=== PATIENT | male | born 1940 | race Caucasian/White ===

== ENCOUNTER 2025-04-02 20:21 | Emergency (ER) | payer MEDICARE, SELFPAY ==
[2025-04-02 20:26] VITALS: BP 139/97
[2025-04-02 20:44] LABS: Hematocrit 37.7 % (39.0-52.0); Hemoglobin 13.3 g/dL (13.0-18.0); Mean Corp Hgb Conc. 35.3 g/dL (33.0-37.0); Mean Corpuscular Volume 88.5 fL (80.0-94.0); Nucleated Red Blood Cells % 0 % (-); Platelet Count 247 10^3/uL (130-400); Red Cell Dist. Width 12.9 % (11.5-14.5)
[2025-04-02 20:58] LABS: ALT (SGPT) 22 U/L (0-50); AST (SGOT) 27 U/L (17-59); Albumin 4.6 g/dl (3.5-5.0); Alkaline Phosphatase 93 U/L (38-126); Blood Urea Nitrogen 19 mg/dl (9-20); Calcium 9.0 mg/dl (8.4-10.2); Carbon Dioxide 19 mmol/L (22-30); Chloride 102 mmol/L (98-107); Glucose 106 mg/dl (70-99); Potassium 3.6 mmol/L (3.5-5.1); Sodium 131 mmol/L (135-145); Total Protein 7.6 g/dl (6.3-8.2); eGFR > 60.00
== END 2025-04-02 23:06 ==
LOC: EMR 20:21
PROVIDERS: Student in an Organized Health Care Education/Training Program
DX: R06.02 Shortness of breath (principal); Z53.21 Procedure and treatment not carried out due to patient leaving prior to being seen by health care provider
CPT/HCPCS: 80053; 85025

== ENCOUNTER 2025-04-05 12:19 | Emergency (ER) | payer MEDICARE, SELFPAY ==
[2025-04-05 12:25] VITALS: BP 171/82
--- NOTE | 2025-04-05 15:41 | ED.GENMED ---
History of Present Illness
General
Chief Complaint: Generalized Pain
Source: patient
Exam Limitations: none
Time Seen by Provider: 04/05/25 15:31
History of Present Illness
History of Present Illness:
85-year-old male presents for reevaluation. He was here 2 days ago and waited in the waiting room and decided to leave. He said someone told him he was anemic when he presented here for further evaluation. He states he is much better now than
what he did 2 days ago. He has no complaints of pain. His his fatigue is much better. No vomiting. His appetite is good. No chest pain. No shortness of breath.
Phy Exam
Physical Exam
Physical Exam:
General: Well-appearing male no acute respiratory distress
Neurologic exam: Alert conversing appropriately normal gait
Extremities: No cyanosis
Skin: Warm, no rash
Course
Vital Signs
Initial and Last Documented VS:
Initial Vital Signs
Temp Pulse Resp BP Pulse Ox
97.5 F 66 16 171/82 99
04/05/25 12:25 04/05/25 12:25 04/05/25 12:04/05/25 12:25 04/05/25 12:25
Last Documented Vital Signs
Temp Pulse Resp BP Pulse Ox
97.5 F 66 16 171/82 99
04/05/25 12:25 04/05/25 12:25 04/05/25 12:25 04/05/25 12:25 04/05/25 12:25
MDM/Problems Addressed
Differential Diagnosis Includes:
Patient here with fatigue but feels much better. He thought he was told he was anemic 2 days ago. Review of the blood work from 2 days ago demonstrated a normal hemoglobin. Other labs from Saturday are without significant findings. Offered more
workup for fatigue including thyroid studies a Lyme test however patient declined. He wishes to leave. He has appoint with his family doctor in April.
*Pulse Oximetry
SaO2: 99
Oxygen Mode of Delivery: Room air
Patient hypoxic: no
*Critical Care Note
Total Time (30-74mins, 75-104mins- exclusive of procedures): Not Applicable
ED Attending Note
-
Portions of this chart may have been created with voice recognition software.� Occasional wrong word or��sound alike� substitutions may have occurred due to the inherent limitations of voice recognition software.
Discharge Plan
Departure
Patient Disposition: Home (Routine Discharge)
Date of Disposition: 04/05/25
Time of Disposition: 15:43
Patient with high blood pressure during this ER visit?: No
Discharge Problem:
Fatigue
Activity Restrictions/Additional Instructions:
As discussed you are not anemic. Labs look good from 2 days ago. Please return here if needed
Interventions
Interventions:
*Risk Screen - Suicide Last Done: 04/05/25 12:25
*General Assessment Last Done: 04/05/25 12:25
*Neglect/Abuse Screening Last Done: 04/05/25 12:25
Discharge Date and Time
Print Language: PASHTO
[2025-04-05 15:47] VITALS: BMI 28.5
[2025-04-05 15:49] VITALS: BP 168/83
== END 2025-04-05 16:00 | disposition home or self-care (01) ==
LOC: EMR 12:19
PROVIDERS: EMERGENCY PHYSICIAN Emergency Medicine
DX: R52 Pain, unspecified (principal); R53.83 Other fatigue
CPT/HCPCS: 99281

== ENCOUNTER → 2025-08-16 08:03 | Outpatient (REF) | payer MEDICARE, SELFPAY | LOC: RAD 08:03 | PROVIDERS: ATTENDING PHYSICIAN Internal Medicine Cardiovascular Disease; FAMILY PHYSICIAN Internal Medicine | DX: I71.40 Abdominal aortic aneurysm, without rupture, unspecified (principal) | CPT/HCPCS: 76770 ==